=== PATIENT | male | born 1960 ===

== ENCOUNTER 2022-11-06 16:34 | Emergency (ER) | payer OTHER | END 2022-11-06 22:05 | disposition home or self-care (01) | LOC: EEVIPCON 16:34 → NAV ERS 16:34 | DX: S72.044A Nondisplaced fracture of base of neck of right femur, initial encounter for closed fracture (principal); S60.222A Contusion of left hand, initial encounter; S60.221A Contusion of right hand, initial encounter; W01.0XXA Fall on same level from slipping, tripping and stumbling without subsequent striking against object, initial encounter ==